=== PATIENT | female | born 1995 | race Caucasian/White ===

== ENCOUNTER 2021-06-22 14:57 | Emergency (ER) | payer MEDICAID, OTHER ==
[~2021-06-22] VITALS: Ht 160 cm; Wt 108.0 kg
[2021-06-22 15:02] VITALS: BP 138/92
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
[2021-06-22] MEDS ORDERED: IBUPROFEN 600 MG TAB PO ONE (15:35)
[2021-06-22] MEDS ORDERED: LORazepam 0.5 MG TAB PO ONE (15:35)
--- NOTE | 2021-06-22 15:41 | NUR ---
XRAY AT BEDSIDE
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
[2021-06-22] MEDS ORDERED: ACETAMINOPHEN EXTRA STRENGTH 500 MG TAB PO ONE (16:55)
[2021-06-22 17:11] VITALS: BP 138/92
--- NOTE | 2021-06-22 17:11 | NUR ---
Patient discharged with v/s stable. Written and verbal after care instructions given and explained. Patient alert, oriented and verbalized understanding of instructions. Ambulatory with steady gait. All questions addressed prior to discharge. ID band removed. Patient advised to follow up with PMD. Opportunity to ask questions provided and answered.
== END 2021-06-22 17:11 | disposition home or self-care (01) ==
LOC: MED 14:57
DX: S16.1XXA Strain of muscle, fascia and tendon at neck level, initial encounter (principal); M25.512 Pain in left shoulder; Z88.0 Allergy status to penicillin; Z88.1 Allergy status to other antibiotic agents; Z88.5 Allergy status to narcotic agent; Z88.6 Allergy status to analgesic agent; V89.2XXA Person injured in unspecified motor-vehicle accident, traffic, initial encounter; Y93.89 Activity, other specified; Y92.89 Other specified places as the place of occurrence of the external cause; Y99.8 Other external cause status
CPT/HCPCS: 71045; 73020; 99284; Q0092